=== PATIENT | male | born 1945 | race Caucasian/White ===

== ENCOUNTER 2017-08-07 08:43 | Day surgery (SDC) | payer BC ==
[~2017-08-07 08:43] MED LIST: ATROPINE 1 MG/10 ML SYRINGE IV; CEFAZOLIN 1 GM INJ; DEXAMETHASONE 4 MG/ML 1 ML INJ; DIPHENHYDRAMINE 50 MG INJ IV; EPHEDrine SULFATE 50 MG/5 ML SYG IV; FENTAnyl 50 MCG/ML VIAL; FENTAnyl 50 MCG/ML VIAL IV; GLYCOPYRROLATE 0.4 MG INJ; HYDROmorphONE (0.2 MG/ML) 10ML SYG IV; LABETALOL HCL 20MG INJ; LABETALOL HCL 20MG INJ IV; LIDOCAINE 2% (SDV) 5 ML INJ; MIDAZOLAM 1 MG/ML 2 ML INJ; MIDAZOLAM 1 MG/ML 2 ML INJ IV; NEOSTIGMINE 3 MG/3 ML SYRINGE; ONDANSETRON 4 MG INJ; OXYCODONE/ACETAMINOPHEN (5/325) TAB PO; PROPOFOL 20 ML; ROCURONIUM 50 MG INJ; hydrALAzine 20 MG INJ; morphine (1 MG/ML) 10ML SYRINGE IV
[2017-08-07] MEDS ORDERED: SUCCINYLCHOLINE CHLORIDE 100 MG/5 ML SYG IV (09:41)
[2017-08-07] MEDS ORDERED: NEOMYC/POLYMYX/BACIT 30 GM OINT (10:47)
[2017-08-07] MEDS ORDERED: POLYMYXIN/BACITRACIN 1L IRRIG (10:47)
[2017-08-07 11:03] LABS: INR 0.96; PARTIAL THROMBOPLASTIN TIME 30.2 Sec (25.0-35.0); PROTIME 12.9 Sec (11.9-14.9)
[2017-08-07] MEDS: BUPIVACAINE 0.25% (MPF) 30 ML INJ (11:43)
[2017-08-07] MEDS: hydrALAzine 20 MG INJ IV (12:52)
[2017-08-07] MEDS: HYDROmorphONE (0.2 MG/ML) 10ML SYG IV ×4 (12:52→13:18)
[2017-08-07] MEDS ORDERED: morphine 2 MG INJ IV (13:00)
[2017-08-07] MEDS: ONDANSETRON 4 MG INJ IV (13:18)
[2017-08-07] MEDS: MEPERIDINE 25 MG INJ IV (13:19)
[2017-08-07] MEDS: OXYCODONE/ACETAMINOPHEN (5/325) TAB PO (13:25)
== END 2017-08-07 14:28 | disposition home or self-care (01) ==
LOC: SDS 08:43
DX: M20.21 Hallux rigidus, right foot (principal); I10 Essential (primary) hypertension; E78.5 Hyperlipidemia, unspecified; Z87.891 Personal history of nicotine dependence; I25.10 Atherosclerotic heart disease of native coronary artery without angina pectoris; I73.9 Peripheral vascular disease, unspecified
CPT/HCPCS: 28291; 73630; 82306; 85610; 85730